=== PATIENT | female | born 1955 | race African-American/Black ===

== ENCOUNTER 2017-04-01 19:53 | Emergency (ER) | payer OTHER ==
[~2017-04-01] VITALS: Ht 180.3 cm; Wt 106.1 kg
--- NOTE | ~2017-04-01 | CR126 ---
[facility] A Service of [facility] & [facility] RADIOLOGY TEXT RESULTS PATIENT: KEISHA PINON LOCATION: [facility] : 59 UNIT #: [id number] AGE: [address]: Santos Mejía MD SEX: F ORDER DR: [id number] [facility] [address] [place], [place] [address] [id number] MR#: [id number] #: [id number] NAME: KEISHA PINON : 1955 SEX: F STUDY DATE/TIME: 04/01/2017 20:19 UNIT: [facility] ROOM: STUDY DESCRIPTION: CR Foot Complete Min 3 View Lt Attending Physician: Santos Mejía M.D. Ordering Physician: Santos Mejía M.D. Primary Care Physician: Bridger Vieyra M.D. MEDICAL IMAGING REPORT This report is preliminary unless electronic signature is present EXAM Left foot 3 views 04/01/2017 HISTORY Left foot pain and swelling first metatarsophalangeal joint region, status post fall 1 week ago. FINDINGS Three views of the left foot demonstrate no fracture. The bones are normally mineralized. There is soft tissue swelling about the left foot. No foreign bodies seen. IMPRESSION Soft tissue swelling about the left foot. No evidence of fracture or radiopaque foreign body. Dictated by... Qasim Zepeda M.D. THIS IS AN ELECTRONICALLY VERIFIED REPORT Qasim Zepeda M.D. at 04/02/2017 2:16 PM MAR/varun TD: 04/02/2017 10:35 JOB #: [id number] MEDICAL IMAGING REPORT Page 1 of 1 COPY
[~2017-04-01 19:53] MED LIST: AMLODIPINE BESY10 MG PO; ARISTOCORT A 0.60 GM TOP; CALAN PO; HCTZ PO; KEFLEX PO; LISINOPRIL-HCTZ1 T14 PO; LOVASTATIN20 MG PO
== END 2017-04-01 21:43 | disposition home or self-care (01) ==
LOC: CED 19:53
DX: M10.9 Gout, unspecified (principal); I10 Essential (primary) hypertension; Z76.0 Encounter for issue of repeat prescription; E78.5 Hyperlipidemia, unspecified
CPT/HCPCS: 73630; 99283